=== PATIENT | male | born 1980 | race American Indian/Alaskan Native ===

== ENCOUNTER 2017-11-01 01:08 | Emergency (ER) | payer OTHER ==
[2017-11-01] MEDS ORDERED: ZOFRAN IV ONE (01:21)
[2017-11-01] MEDS ORDERED: NACL 0.9% 1000 ML 1,000 ML IV ONE (01:21)
[2017-11-01] MEDS ORDERED: TENIVAC IM ONE (01:21)
[2017-11-01] MEDS ORDERED: SUBLIMAZE IV ONE (01:21)
[2017-11-01] MEDS ORDERED: SUBLIMAZE ONE (01:24)
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
[2017-11-01] MEDS ORDERED: BOOSTRIX IM ONE ×2 (01:26→01:42)
[2017-11-01 01:40] LABS: Basophils % (Auto) 0.5 % (0.0-1.8); Eosinophils # (Auto) 0.1 K/mm3 (0.0-0.4); Eosinophils % (Auto) 1.7 % (0.0-4.3); Hematocrit 44.4 % (35.5-45.6); Hemoglobin 14.7 gm/dl (11.8-15.2); Lymphocytes # (Auto) 1.7 K/mm3 (1.2-5.4); Lymphocytes % (Auto) 25.6 % (13.4-35.0); Mean Corpuscular HGB Conc 33 % (32-34); Mean Corpuscular Hemoglobin 28 pg (28-32); Mean Corpuscular Volume 86 fl (84-94); Monocytes # (Auto) 0.5 K/mm3 (0.0-0.8); Monocytes % (Auto) 6.8 % (0.0-7.3); Platelet Count 242 K/mm3 (140-440); Red Blood Count 5.18 M/mm3 (3.65-5.03); Red Cell Distribution Width 13.9 % (13.2-15.2)
[2017-11-01 01:49] LABS: BUN/Creatinine Ratio 24; Blood Urea Nitrogen 17 mg/dL (9-20); Calcium 9.5 mg/dL (8.4-10.2); Hemolysis Index 7
[2017-11-01 04:22] VITALS: BP 117/70
== END 2017-11-01 04:30 | disposition other institution (70) ==
LOC: ED 01:08
DX: T23.201A Burn of second degree of right hand, unspecified site, initial encounter (principal)
CPT/HCPCS: 36415; 80048; 85025; 90715; 96361; 96372; 96374; 99284; J2405; J3010; J7030